=== PATIENT | female | born 1930 | race Caucasian/White ===

== ENCOUNTER 2016-07-21 14:51 | Observation (INO) | payer OTHER, MEDICARE ==
[~2016-07-21] VITALS: Ht 152.4 cm; Wt 68.3 kg
[~2016-07-21 14:51] MED LIST: ADVAIR; ANTIVERT25 MG PO; ANUSOL HC,ANUCO25 MG PR; ARTHROTEC; ATIVAN0.5 MG PO; BONIVA; CELEBREX; CELEBREX200 MG PO; CENTRUM SILVER1 EAC3 PO; CENTRUM SILVER1 EAC4 PO; Combivent IH; DAILY VITAMIN1 EAC8 PO; FLAGYL500 MG PO; FOLIC ACID1 MG PO; GABAPENTIN; GABAPENTIN400 MG PO; GLIMEPIRIDE; GLUCOPHAGE500 MG PO; HYDROCHLOROTH12.5 M3 PO; HYDROCODON-ACE1 EAC7 PO; HYZAAR 100-11 TABLET PO; KEFLEX500 MG PO; LORAZEPAM; LORAZEPAM0.5 MG PO; LOSARTAN-HCTZ; LOSARTAN-HCTZ1 EAC2 PO; METFORMIN; METFORMIN HCL500 MG; METFORMIN HCL500 MG PO; METHOTREXATE2.5 MG PO; METRONIDAZOLE500 MG PO; NEURONTIN400 MG PO; NEXIUM; NORVASC10 MG PO; OMEPRAZOLE40 M1 PO; ONDANSETRON ODT4 MG PO; PRAVACHOL20 MG PO; PRAVASTATIN; PRILOSEC40 MG PO; SERTRALINE; SERTRALINE HCL100 MG PO; SINGULAIR10 MG PO; TRADJENTA5 MG PO; VALTREX1000 MG PO; VICODIN 5-3001 EACH PO; VITAMIN D35000 UNIT PO; VITAMIN D5000 UNIT PO; WELCHOL; WELCHOL625 MG PO; XODOL 5-300 TA1 EACH PO; ZENPEP DR 10,01 EACH PO; ZITHROMAX500 MG PO; ZOFRAN ODT4 MG PO; ZOFRAN ODT8 MG PO; ZOLOFT100 MG PO; ZOVIRAX200 MG PO; ZYRTEC10 M3 PO
[2016-07-21 16:52] LABS: HEMATOCRIT 45.1 % (36.0-46.0); MCH 31.6 PG (29.0-34.0); MCHC 35.5 G/DL (30.0-36.0); MCV 89.1 FL (83-99); MEAN PLAT.VOLUME 9.9 uM^3 (9.5-12.4); PLATELET COUNT 238 K/uL (156-360); RBC DIS.WIDTH-CV 14.3 % (11.8-14.6); RBC DIS.WIDTH-SD 45.1 % (39-53); RED BLOOD COUNT 5.06 M/uL (3.80-5.20); WHITE BLOOD COUNT 8.5 K/uL (4.1-10.2)
[2016-07-21 16:59] LABS: CHLORIDE 104 mEq/L (99-109)
[2016-07-21 17:00] LABS: POTASSIUM 3.2 mEq/L (3.7-5.4); SODIUM 140 mEq/L (136-147)
[2016-07-21 17:01] LABS: GLUCOSE 181 mg/dL (70-99)
[2016-07-21 17:03] LABS: ANION GAP 14 MEQ/L (2-14)
[2016-07-21 17:05] LABS: GFR ESTIMATE (CALCULATED) > 59 mL/min/
[2016-07-21 17:06] LABS: UREA NITROGEN (BUN) 9 mg/dL (9-23)
[2016-07-21 17:12] LABS: TROP-I INTERPRETATION NEGATIVE; TROPONIN-I < 0.01 ng/mL (0.0-0.30)
[2016-07-21] MEDS ORDERED: ZOLOFT50 MG PO (18:53)
[2016-07-21] MEDS ORDERED: LOSARTAN-HCTZ1 EAC2 PO (19:53)
[2016-07-21 20:29] VITALS: BP 173/93
[2016-07-21 22:00] VITALS: BP 177/66
[2016-07-21 23:57] LABS: POINT-OF-CARE METER ID UU13113700
[2016-07-22 04:00] VITALS: BP 138/87
[2016-07-22 06:04] LABS: TROP-I INTERPRETATION NEGATIVE; TROPONIN-I 0.02 ng/mL (0.0-0.30)
[2016-07-22 06:12] LABS: HDL CHOLESTEROL 43 MG/DL (Desirable>=50); LDL CHOLESTEROL 119 mg/dL (Desirable<100); NON-HDL CHOLESTEROL 154 mg/dL (Desirable<160); TOTAL CHOLESTEROL 197 mg/dL (Desirable<200); TRIGLYCERIDES 174 MG/DL (Normal: <150)
[2016-07-22 08:07] VITALS: BP 173/89
[2016-07-22 08:51] LABS: POINT-OF-CARE METER ID UU13113700
[2016-07-22 11:37] LABS: TROP-I INTERPRETATION NEGATIVE; TROPONIN-I 0.02 ng/mL (0.0-0.30)
[2016-07-22 11:52] VITALS: BP 154/73
[2016-07-22 12:23] LABS: POINT-OF-CARE METER ID UU13113700
[2016-07-22 12:39] LABS: HEMATOCRIT 42.1 % (36.0-46.0); MCH 31.9 PG (29.0-34.0); MCHC 34.7 G/DL (30.0-36.0); MCV 91.9 FL (83-99); MEAN PLAT.VOLUME 10.7 uM^3 (9.5-12.4); PLATELET COUNT 182 K/uL (156-360); RBC DIS.WIDTH-CV 14.1 % (11.8-14.6); RBC DIS.WIDTH-SD 47.2 % (39-53); RED BLOOD COUNT 4.58 M/uL (3.80-5.20); WHITE BLOOD COUNT 4.6 K/uL (4.1-10.2)
[2016-07-22 13:01] LABS: ANION GAP 11 MEQ/L (2-14); CHLORIDE 99 MEQ/L (99-109); GFR ESTIMATE (CALCULATED) > 59 mL/min/; GLUCOSE 178 mg/dL (70-99); POTASSIUM 3.3 MEQ/L (3.7-5.4); SAMPLE HEMOLYSIS CHECK 0; SAMPLE ICTERIC CHECK 0; SAMPLE LIPEMIA CHECK 0; SODIUM 137 MEQ/L (136-147); UREA NITROGEN (BUN) 9 mg/dL (9-23)
[2016-07-22 15:56] VITALS: BP 170/82
[2016-07-22 16:53] LABS: POINT-OF-CARE METER ID UU13113700
[2016-07-22 20:00] VITALS: BP 140/66
[2016-07-23 04:49] VITALS: BP 156/93
[2016-07-23 08:04] VITALS: BP 149/84
[2016-07-23 09:29] LABS: INFLUENZA A VIRAL ANTIGEN NEGATIVE; INFLUENZA B VIRAL ANTIGEN NEGATIVE
[2016-07-23] MEDS ORDERED: AZITHROMYCIN500 M1 PO (11:44)
[2016-07-23] MEDS ORDERED: ACYCLOVIR800 MG PO (11:44)
[2016-07-23] MEDS ORDERED: GUAIFENESI100 MG/5 M PO (11:44)
[2016-07-23] MEDS ORDERED: ASPIR-LOW81 MG PO (11:44)
[2016-07-23 11:51] VITALS: BP 124/58
[2016-07-23 13:03] LABS: POINT-OF-CARE METER ID UU13113831
== END 2016-07-23 16:12 | disposition home or self-care (01) ==
LOC: EME 14:51 → EDOF 19:19 → 5WEST 20:14
PROVIDERS: Hospitalist; Nurse Practitioner Adult Health; Physician Assistant Medical
DX: R07.9 Chest pain, unspecified (principal); B02.9 Zoster without complications; I16.0 Hypertensive urgency; I10 Essential (primary) hypertension; R09.02 Hypoxemia; E87.6 Hypokalemia; Z91.81 History of falling; R51 Headache; K21.9 Gastro-esophageal reflux disease without esophagitis; E78.5 Hyperlipidemia, unspecified; E11.65 Type 2 diabetes mellitus with hyperglycemia; M06.9 Rheumatoid arthritis, unspecified; T37.5X6A Underdosing of antiviral drugs, initial encounter; T46.5X6A Underdosing of other antihypertensive drugs, initial encounter; Z91.128 Patient's intentional underdosing of medication regimen for other reason; Z96.653 Presence of artificial knee joint, bilateral; Z82.61 Family history of arthritis; Z80.1 Family history of malignant neoplasm of trachea, bronchus and lung; Z83.79 Family history of other diseases of the digestive system; Z88.5 Allergy status to narcotic agent; Z88.8 Allergy status to other drugs, medicaments and biological substances; Z79.84 Long term (current) use of oral hypoglycemic drugs
CPT/HCPCS: 70450; 71020; 80048; 80061; 82948; 83880; 84484; 85027; 87502; 93005; 94799; 99281; 99285; G0378; G8978 GP CI; G8979 GP CH; J0360; J1644; J1815; J3480